=== PATIENT | female | born 1980 | race Two or more races ===

== ENCOUNTER 2016-10-16 23:24 | Emergency (ER) | payer MEDICAID ==
[2016-10-17] MEDS ORDERED: DIPHENHYDRAMINE HCL 50 MG/1 ML VIAL ONE (00:11)
[2016-10-17] MEDS ORDERED: METOCLOPRAMIDE HCL 5 MG/ML 2ML VIAL ONE (00:11)
[2016-10-17] MEDS ORDERED: SODIUM CHLORIDE 0.9% 1,000 ML ONE (00:11)
[2016-10-17] MEDS ORDERED: KETOROLAC TROMETHAMINE 15 MG/ML VIAL ONE (00:12)
--- NOTE | 2016-10-17 07:46 | CT ---
Exam: CT head without contrast COMPARISON: None INDICATION: Frequent migraines for 2 months, worsening pain. Blurred vision and dizziness. TECHNIQUE: CT examination of the head was obtained without contrast. FINDINGS: There is no acute intracranial hemorrhage. There is no abnormal intra or extra-axial fluid collection. There is no edema, mass effect or midline shift. There is asymmetric sulcal prominence along the posterior mesial left cerebellar hemisphere, possibly on a congenital basis but of doubtful clinical concern. Ventricles are normal in size. The visualized paranasal sinuses and mastoid air cells are well aerated. IMPRESSION: No acute intracranial abnormality. Preliminary report transmitted to the emergency department from [facility] at 0128 hours 10/17/2016.
== END 2016-10-17 02:35 | disposition home or self-care (01) ==
LOC: ED 23:24
DX: R51 Headache (principal)
CPT/HCPCS: 84703; 70450; 96375 ×2; 99283 ×2; 96374; 96361 ×2; J1200; J2765; J1885; J7030